=== PATIENT | male | born 1990 | race African-American/Black ===

== ENCOUNTER 2016-11-21 19:03 | Emergency (ER) | payer MEDICARE, MEDICAID ==
[~2016-11-21] VITALS: Ht 182.9 cm; Wt 113.0 kg
[2016-11-21 19:25] VITALS: BP 145/92
== END 2016-11-22 03:34 | disposition left against medical advice (07) ==
LOC: ER 19:04
DX: Z76.0 Encounter for issue of repeat prescription (principal)

== ENCOUNTER 2022-07-29 05:06 | Emergency (ER) | payer MEDICAID, MEDICARE ==
[~2022-07-29] VITALS: Ht 185.4 cm; Wt 137.0 kg
[2022-07-29 05:25] VITALS: BP 158/92
[2022-07-30] MEDS ORDERED: TRAZ150T78 PO (12:04)
[2022-07-30] MEDS ORDERED: OXCA600T5 MT (12:04)
[2022-07-30] MEDS ORDERED: DIPH-907 MT (12:04)
== END 2022-07-29 06:00 | disposition left against medical advice (07) ==
LOC: ER 05:06
DX: Z53.21 Procedure and treatment not carried out due to patient leaving prior to being seen by health care provider (principal)

== ENCOUNTER 2022-07-30 11:29 | Emergency (ER) | payer MEDICAID ==
[~2022-07-30] VITALS: Ht 182.9 cm; Wt 136.0 kg
[2022-07-30 11:32] VITALS: BP 119/69
[2022-07-30] MEDS ORDERED: OXCA600T5 MT (12:04)
[2022-07-30] MEDS ORDERED: TRAZ150T78 PO (12:04)
[2022-07-30] MEDS ORDERED: DIPH-907 MT (12:04)
== END 2022-07-30 12:15 | disposition home or self-care (01) ==
LOC: ER 11:29
DX: Z76.0 Encounter for issue of repeat prescription (principal); F31.9 Bipolar disorder, unspecified; F20.9 Schizophrenia, unspecified; Z88.8 Allergy status to other drugs, medicaments and biological substances
CPT/HCPCS: 99283